=== PATIENT | female | born 2000 | race Caucasian/White ===

== ENCOUNTER 2022-05-12 18:01 | Emergency (ER) | payer OTHER, SELFPAY ==
[2022-05-12 18:07] VITALS: BP 159/123; PULSE 125; RESP 20; TEMP 36.6; O2SAT 100
[2022-05-12 18:19] VITALS: BP 169/118; PULSE 116; RESP 13
[2022-05-12 18:31] VITALS: BP 164/115; PULSE 113; RESP 18; O2SAT 100
--- NOTE | 2022-05-12 18:50 | ED.ANXIETY ---
HPI - Anxiety General Chief Complaint: Anxiety Stated Complaint: ANXIETY, FEELS DISASSOCIATED Time Seen by Provider: 05/12/22 18:25 History of Present Illness HPI narrative: 22-year-old female with history of anxiety presents the emergency room for evaluation of panic attack. Patient states that she returned from her sister's wedding last night, admitted to having an excessive amount of alcohol to drink. Patient states that she has noticed she has been under tearful, had difficulty sleeping last night despite taking Benadryl, nausea, and states she is having a euphoric feeling. Patient denies any recreational drug use. Related Data Home Medications Medication Instructions Recorded Confirmed drospirenone 3 mg-ethinyl 1 tablet PO DAILY 01/14/22 01/14/22 estradiol 0.02 mg tablet (Silviayna (28)) metoprolol succinate 25 mg 25 mg PO DAILY 01/14/22 01/14/22 tablet,extended release 24 hr pantoprazole 40 mg tablet,delayed 40 mg PO QAM 01/14/22 01/14/22 release paroxetine HCl 20 mg tablet 20 mg PO DAILY 01/14/22 01/14/22 Allergies Allergy/AdvReac Type Severity Reaction Status Date / Time Penicillins Allergy Unknown RASH Verified 01/14/22 14:45 Review of Systems Review of Systems: CONSTITUTIONAL: Denies fever, chills, or sweats. EYES: Denies visual changes, redness, or discharge. ENT: Denies rhinorrhea, congestion, sore throat, or otalgia. CARDIOVASCULAR: Denies chest pain, palpitations, or edema. RESPIRATORY: Denies cough or dyspnea. GASTROINTESTINAL: Reports nausea and vomiting GENITOURINARY: Denies dysuria or hematuria. SKIN: Denies rash or itching. MUSCULOSKELETAL: Denies back pain, joint pain, or myalgia. NEUROLOGIC: Denies headache, numbness, dizziness, or weakness. PSYCHIATRIC: Reports anxiety and insomnia PMF Past Medical History Medical History Hodgkins lymphoma Surgical History Surgical History Hx of tonsillectomy Family History Family History Mother Hypertension Father Hyperlipidemia Social History Social History Smoking status: Never smoker Second hand tobacco smoke exposure: No Alcohol intake: current Drinks per week: 10 Substance use: never Substance use type: does not use Gender identity (if verbalized by the patient): Female Sexual Orientation (if Verbalized by the Patient): Straight or Heterosexual Spiritual care concerns: No Agree to blood products: Yes Exam Narrative: GENERAL: Well-appearing, well-nourished, no physical limitations, and in mild emotional acute distress. HEAD: Normocephalic, atraumatic. EYES: Conjunctivae normal, PERRLA and EOMI. ENT: External nose normal, Nares clear, no rhinorrhea or epistaxis. Mucous membranes moist. Oropharynx without tonsillar hypertrophy exudate or other lesions. External ears normal, bilateral TMs normal bilaterally NECK: Supple. No adenopathy or masses. CHEST: Clear to auscultation. No respiratory distress. No wheezes rales or rhonchi. No tenderness. HEART: Regular rate and rhythm. No murmur heard. Normal peripheral pulses. ABDOMEN: Soft, nontender, nondistended, normal active bowel sounds. BACK: No CVA tenderness; No cervical/thoracic/lumbar tenderness, step-offs, bony abnormality; FROM EXTREMITIES: Normal range of motion. No edema. No clubbing or cyanosis SKIN: Warm, dry, no rash. No noted wounds NEURO: No focal deficits. Alert and oriented x3. MAEW. CN's II-XI intact bilaterally, normal gait PSYCH: Cooperative. Anxious and tearful. Course Vital Signs Vital signs: Vital Signs Temperature 36.6 C 05/12/22 18:07 Pulse Rate 125 H 05/12/22 18:07 Respiratory Rate 20 05/12/22 18:07 Blood Pressure 159/123 H 05/12/22 18:07 Pulse Oximetry 100 05/12/22 18:07 Oxygen Delivery Room A
[2022-05-12] MEDS: LORazepam INJ (*CRX) 2 MG/ML VIAL 1 MG IV PUSH (19:05)
[2022-05-12] MEDS: SODIUM CHLORIDE 0.9% IV 1,000 ML 999 ML IV CONT (19:06)
[2022-05-12 19:17] LABS: Ethanol < 10 mg/dL (<10)
--- NOTE | 2022-05-12 19:19 | PC.NURSE ---
Patient care report given to NEVA Reilly. All questions answered at this time.
[2022-05-12 19:50] LABS: Appearance Urine Slightly Cloudy (Clear); Bilirubin Urine Negative (Negative); Color Urine Yellow (Yellow); Glucose Urine UA Negative (Negative); Ketones Urine Negative (Negative); Leukocyte Esterase Ur Trace LEU/UL (Negative); Nitrate Urine Negative (Negative); Protein Urine 1+ mg/dL (Negative); Specific Grav Ur >= 1.030 (1.001-1.035); Urobilinogen Urine 0.2 mg/dL (<2.0)
[2022-05-12 20:01] LABS: Add Urine Microscopic? YES; Blood Urine Trace-Intact (Negative)
[2022-05-12 20:03] LABS: Bacteria Urine Trace /hpf; Mucus Urine Heavy /lpf; RBC Urine 0-2 /hpf (0-2); Squamous Epithelial Cell Urine Many /hpf (Few)
[2022-05-12 20:06] LABS: Amphetamine Screen Urine Negative (Negative); Barbiturate Screen Urine Negative (Negative); Benzodiazepines Screen Urine Negative (Negative); Cannabinoid Screen Urine Negative (Negative); Cocaine Screen Urine Negative (Negative); Methadone Screen Urine Negative (Negative); Opiate Screen Urine Negative (Negative); Phencyclidine Screen Urine Negative (Negative)
[2022-05-12 20:40] VITALS: PULSE 100
[2022-05-12] MEDS: METOPROLOL TARTRATE INJ 5 MG/5 ML VIAL IV PUSH (20:40)
[2022-05-12 21:21] VITALS: BP 155/105; PULSE 99; RESP 17; O2SAT 97
== END 2022-05-12 21:21 | disposition home or self-care (01) ==
PROVIDERS: Emergency Provider Nurse Practitioner Family; PCP Family Medicine Adolescent Medicine
DX: F41.0 Panic disorder [episodic paroxysmal anxiety] (principal); Z85.71 Personal history of Hodgkin lymphoma
CPT/HCPCS: 36415; 80307; 81001; 81025; 87086; 87088; 96361; 96374; 96375; 99284; J2060; J7030

== ENCOUNTER 2023-04-30 08:50 | Emergency (ER) | payer OTHER, SELFPAY ==
[2023-04-30] VITALS (25 sets, daily range): BP systolic 142–200; BP diastolic 100–132; PULSE 79–127; RESP 12–20; TEMP 36.4–36.8; O2SAT 100
--- NOTE | ~2023-04-30 | XR_ITS ---
EXAMINATION: XR chest 2V DATE: 04/30/2023 09:58 INDICATION: Hypertension TECHNIQUE: PA and lateral views of the chest are obtained. COMPARISON: None available FINDINGS: The lungs are free of acute opacities. No pleural effusion or pneumothorax. The cardiomedia stinal silhouette is normal. The visualized bones and soft tissues are unremarkable. IMPRESSION: 1. No acute cardiopulmonary abnormality. Reviewed, dictated and finalized at location B.
--- NOTE | 2023-04-30 09:05 | ECG_ITS ---
Measurements Intervals [place] Rate: 125 P: 54 CO: 140 QRS: 25 QRSD: 85 T: 29 QT: 308 QTc: 445 Interpretive Statements SINUS TACHYCARDIA NONSPECIFIC ST & T-WAVE ABNORMALITY- INF/HIGH LAT LEADS BASELINE ARTIFACT- I, II, III, AVR, AVL, AVF ABNORMAL ECG NO PREVIOUS ECG AVAILABLE FOR COMPARISON Electronically Signed On 04-30-2023 9:34:14 CDT by Ubaldo Temple D.O.
[2023-04-30 09:26] LABS: Basophils Absolute Auto 0.1 K/mm3 (0.0-0.1); Basophils Percent Auto 0.8 % (0.2-1.2); Eosinophils Absolute Auto 0.1 K/mm3 (0-0.3); Eosinophils Percent Auto 0.7 % (0-4.4); Hematocrit 38.4 % (37.0-47.0); Hemoglobin 12.7 g/dL (12.0-15.0); Immature Granulocyte Absolute 0.01 K/mm3 (0.00-0.031); Immature Granulocyte Percent A 0.1 % (0-0.5); Lymphocytes Absolute Auto 2.61 K/mm3 (0.9-3.2); Mean Corpuscular HGB Conc 33.1 g/dl (32-36); Mean Corpuscular Hemoglobin 31.9 pg (26-34); Mean Corpuscular Volume 96.5 fl (80-100); Mean Platelet Volume 9.8 fl (7.4-10.4); Monocytes Absolute Auto 0.6 K/mm3 (0.1-0.6); Monocytes Percent Auto 7.9 % (2.6-8.5); Neutrophils Absolute Auto 4.1 K/mm3 (1.3-6.7); Neutrophils Percent Auto 55.5 % (45.5-73.1); Platelet Count Result 295 k/mm3 (150-375); Red Blood Count 3.98 M/mm3 (4.2-5.4); Red Cell Distribution Width 13.4 % (11.5-14.5); White Blood Count 7.5 K/mm3 (4.5-10.0)
[2023-04-30 09:37] LABS: Alanine Aminotransferase 31 U/L (6-35); Albumin Level 4.6 g/dL (3.5-5.1); Alkaline Phosphatase 92 U/L (38-126); Anion Gap 9 mmol/L (8-16); Aspartate Amino Transferase 56 U/L (14-36); Bilirubin,Total 1.1 mg/dL (0.2-1.3); Blood Urea Nitrogen 13 mg/dL (7-17); Calcium 9.6 mg/dL (8.4-10.2); Carbon Dioxide 24 mmol/L (22-30); Chloride 103 mmol/L (98-107); Estimated CRCL calculation 97 ml/min; Estimated Glomerular Filt Rate > 60; Glucose 95 mg/dL (65-110); Potassium 3.1 mmol/L (3.4-5.0); Sodium 136 mmol/L (137-145)
--- NOTE | 2023-04-30 09:41 | ED.ARRPALP ---
HPI - Arrhythmia/Palpitations General Chief Complaint: Arrhythmia/Palpitations Stated Complaint: rapid heart rate x several months Time Seen by Provider: 04/30/23 09:04 Source: patient Mode of arrival: ambulatory Limitations: no limitations History of Present Illness HPI narrative: This is a 23-year-old female that presents to the emergency department for hypertension. Reports she has been on metoprolol for several years. Largely due to anxiety and palpitations. This is also managed her blood pressure. Reports over the last couple of months she feels as though it is no longer been controlling her blood pressure. She presents to the emergency department today for elevated blood pressure, elevated heart rate and anxiety. Reports she has not seen her primary provider for this yet. 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 Denies visual changes, headache, chest pain, shortness of breath, or lower extremity edema. Related Data Home Medications Medication Instructions Recorded Confirmed drospirenone 3 mg-ethinyl 1 tablet PO DAILY 01/14/22 01/14/22 estradiol 0.02 mg tablet (Loryna (28)) pantoprazole 40 mg tablet,delayed 40 mg PO QAM 01/14/22 01/14/22 release paroxetine HCl 20 mg tablet 20 mg PO DAILY 01/14/22 01/14/22 Allergies Allergy/AdvReac Type Severity Reaction Status Date / Time Penicillins Allergy Unknown RASH Verified 04/30/23 08:51 Review of Systems Review of Systems: CONSTITUTIONAL: Denies fever EYES: Denies visual changes CARDIOVASCULAR: Reports palpitations. Denies chest pain, or edema. RESPIRATORY: Denies dyspnea. NEUROLOGIC: Denies headache, numbness, or weakness. PSYCHIATRIC: Reports anxiety All systems reviewed & are unremarkable except as noted in HPI and below [facility] Past Medical History Medical History Hodgkins lymphoma Surgical History Surgical History Hx of tonsillectomy Family History Family History Mother Hypertension Father Hyperlipidemia Social History Social History Smoking status: Never smoker Second hand tobacco smoke exposure: No Alcohol intake: current Drinks per week: 10 Substance use: never Substance use type: does not use Living arrangements: with family Occupation/Education: occupation Gender identity (if verbalized by the patient): Female Sexual Orientation (if Verbalized by the Patient): Straight or Heterosexual Spiritual care concerns: No Agree to blood products: Yes Exam Narrative: GENERAL: Well-appearing, well-nourished, and in no acute distress. HEAD: Normocephalic, atraumatic. EYES: PERRLA and EOMI. ENT: Nares clear, no rhinorrhea or epistaxis. Mucous membranes moist. Oropharynx without tonsillar hypertrophy exudate or other lesions. Bilateral TMs pearly quach non-bulging NECK: Supple. No adenopathy or masses. CHEST: Clear to auscultation. No respiratory distress. No wheezes rales or rhonchi HEART: Regular rate and rhythm. No murmur heard. Normal peripheral pulses. EXTREMITIES: Normal range of motion. No edema. SKIN: Warm, dry, no rash. NEURO: No focal deficits. Alert and oriented x3. PSYCH: Anxious Course Course Emergency Course: Patient was updated on work-up and agrees with plan of care Consultations Consultation #1: Spoke with Dr. Ledezma about patient and workup. Will increase Metoprolol and follow up in clinic for further management of abnormal thyroid function Date: 04/30/23 Vital Signs Vital signs: Vital Signs Temperature 97.6 F 04/30/23 08:52 Pulse Rate 127 H 04/30/23 08:52 Respiratory Rate 18 04/30/23 08:52 Blood Pressure 200/132 H 04/30/23 08:52 Pulse Oximetry 100 07
[2023-04-30] MEDS: METOPROLOL SUCCINATE EXT REL 25 MG TABCR PO (10:03)
[2023-04-30 10:20] LABS: Magnesium 1.5 mg/dL (1.6-2.3)
[2023-04-30 10:45] LABS: Appearance Urine Clear (Clear); Bacteria Urine Rare /hpf; Bilirubin Urine Negative (Negative); Blood Urine 3+ (Negative); Color Urine Yellow (Yellow); Glucose Urine UA Negative (Negative); Ketones Urine Negative (Negative); Leukocyte Esterase Ur 2+ LEU/UL (Negative); Nitrate Urine Negative (Negative); Non Pathogenic Casts 0-2; Protein Urine Trace mg/dL (Negative); Specific Grav Ur 1.013 (1.001-1.035); Squamous Epithelial Cell Urine Occasional /hpf (Few); Urobilinogen Urine 0.2 mg/dL (<2.0); WBC Urine 21-50 /hpf; pH Urine 6.5 (5.0-9.0)
[2023-04-30 10:46] LABS: Add Urine Microscopic? YES
[2023-04-30] MEDS: MAGNESIUM CHLORIDE 64 MG TABLET PO (11:15)
[2023-04-30] MEDS: POTASSIUM CHLORIDE 20 MEQ ER TABLET 40 MEQ PO (11:15)
[2023-04-30 11:46] LABS: Free T4 Free Thyroxine Reflex 0.71 ng/dL (0.78-2.19)
== END 2023-04-30 13:15 | disposition home or self-care (01) ==
PROVIDERS: Emergency Provider Physician Assistant; PCP Family Medicine Adolescent Medicine
DX: I10 Essential (primary) hypertension (principal); E87.6 Hypokalemia; R94.6 Abnormal results of thyroid function studies; F41.9 Anxiety disorder, unspecified; Z85.71 Personal history of Hodgkin lymphoma
CPT/HCPCS: 36415; 71046; 80053; 81001; 81025; 83735; 84439; 84443; 85025; 87086; 87088; 93005; 99283; A9270

== ENCOUNTER 2023-08-27 15:41 | Emergency (ER) | payer OTHER, SELFPAY ==
[2023-08-27 15:43] VITALS: BP 160/112; PULSE 98; RESP 18; TEMP 36.4; O2SAT 100
--- NOTE | 2023-08-27 16:07 | ED.ANXIETY ---
HPI - Anxiety General Chief Complaint: Anxiety Stated Complaint: nausea/vomiting Time Seen by Provider: 08/27/23 15:50 History of Present Illness HPI narrative: 23-year-old female presents to the emergency room for evaluation of acute anxiety reaction. Patient states that she recently lost her grandmother, stating that she was her best friend. Reports difficulty sleeping and inability to stop crying Related Data Home Medications Medication Instructions Recorded Confirmed drospirenone 3 mg-ethinyl 1 tablet PO DAILY 01/14/22 05/19/23 estradiol 0.02 mg tablet (Loryna (28)) pantoprazole 40 mg tablet,delayed 40 mg PO QAM 01/14/22 05/19/23 release paroxetine HCl 20 mg tablet 20 mg PO DAILY 01/14/22 05/19/23 Allergies Allergy/AdvReac Type Severity Reaction Status Date / Time Penicillins Allergy Unknown RASH Verified 08/27/23 15:49 Review of Systems Review of Systems: CONSTITUTIONAL: Denies fever, chills, or sweats. EYES: Denies visual changes, redness, or discharge. ENT: Denies rhinorrhea, congestion, sore throat, or otalgia. CARDIOVASCULAR: Denies chest pain, palpitations, or edema. RESPIRATORY: Denies cough or dyspnea. GASTROINTESTINAL: Denies abdominal pain, nausea, vomiting, or diarrhea. GENITOURINARY: Denies dysuria or hematuria. SKIN: Denies rash or itching. MUSCULOSKELETAL: Denies back pain, joint pain, or myalgia. NEUROLOGIC: Denies headache, numbness, dizziness, or weakness. PSYCHIATRIC: Reports anxiety. [facility] Past Medical History Medical History Hodgkins lymphoma Surgical History Surgical History Hx of tonsillectomy Family History Family History Mother Hypertension Father Hyperlipidemia Social History Social History Smoking status: Never smoker Second hand tobacco smoke exposure: No Alcohol intake: current Drinks per week: 10 Substance use: never Substance use type: does not use Living arrangements: with family Occupation/Education: occupation Gender identity (if verbalized by the patient): Female Sexual Orientation (if Verbalized by the Patient): Straight or Heterosexual Spiritual care concerns: No Agree to blood products: Yes Exam Narrative: GENERAL: Well-appearing, well-nourished, no physical limitations, tearful. HEAD: Normocephalic, atraumatic. EYES: Conjunctivae normal, PERRLA and EOMI. CHEST: Clear to auscultation. No respiratory distress. No wheezes rales or rhonchi. HEART: Regular rate and rhythm. No murmur heard. Normal peripheral pulses. EXTREMITIES: Normal range of motion. No edema. No clubbing or cyanosis SKIN: Warm, dry, no rash. No noted wounds NEURO: No focal deficits. Alert and oriented x3. MAEW. CN's II-XI intact bilaterally, normal gait PSYCH: Cooperative. Anxious and tearful. Course Vital Signs Vital signs: Vital Signs Temperature 36.4 C 08/27/23 15:43 Pulse Rate 98 08/27/23 15:43 Respiratory Rate 18 08/27/23 15:43 Blood Pressure 160/112 H 08/27/23 15:43 Pulse Oximetry 100 08/27/23 15:43 Oxygen Delivery Room Air 08/27/23 15:43 Temperature 36.4 C 08/27/23 15:43 Pulse Rate 98 08/27/23 15:43 Respiratory Rate 18 08/27/23 15:43 Blood Pressure 160/112 H 08/27/23 15:43 Pulse Oximetry 100 08/27/23 15:43 Oxygen Delivery Room Air 08/27/23 15:43 MDM - Anxiety Lab Data Labs: Lab Results 08/27/23 Range/Units 16:15 TSH 3.100 (0.465-4.680) uIU/mL Discharge Plan Discharge Clinical Impression: Grief reaction Patient Disposition: Home, Self-Care Condition: Stable Instructions: Antibiotic Form, Anxiety (ED) Prescriptions: New lorazepam [Ativan] 1 mg tablet 1 mg PO TID PRN (Reason: anxiety) Qty: 21 0RF No Action paro
[2023-08-27] MEDS: LORazepam INJ (*CRX) 2 MG/ML VIAL 1 MG IV PUSH (16:21)
[2023-08-27 17:23] VITALS: PULSE 91; RESP 18; O2SAT 100
== END 2023-08-27 17:23 | disposition home or self-care (01) ==
PROVIDERS: Emergency Provider Nurse Practitioner Family; PCP Family Medicine Adolescent Medicine
DX: F43.20 Adjustment disorder, unspecified (principal)
CPT/HCPCS: 36415; 84443; 96374; 99284; J2060

== ENCOUNTER 2024-02-10 11:49 | Outpatient (CLI) | payer OTHER, SELFPAY ==
--- NOTE | ~2024-02-10 | XR_ITS ---
XR chest 2V 02/10/2024 12:11 Indication: Persistent cough for weeks Procedure: 2 view chest Comparison: No prior studies for comparison. Findings: Left upper lobe pneumonia. Heart size normal. Mild levoscoliosis of the thoracic spine. No pleural effusion, edema or pneumothorax. Impression: 1: Left upper lobe pneumonia. Reviewed, dictated and finalized at location B. Impression: 1: Left upper lobe pneumonia.
[2024-02-10 13:03] LABS: Basophils Percent Auto 0.1 % (0.2-1.2); Eosinophils Percent Auto 0.1 % (0-4.4); Hematocrit 37.4 % (37.0-47.0); Hemoglobin 12.5 g/dL (12.0-15.0); Immature Granulocyte Absolute 0.35 K/mm3 (0.00-0.031); Lymphocytes Absolute Auto 0.57 K/mm3 (0.9-3.2); Lymphocytes Percent Auto 6.5 % (18.3-44.2); Mean Corpuscular HGB Conc 33.4 g/dl (32-36); Mean Corpuscular Hemoglobin 30.6 pg (26-34); Mean Corpuscular Volume 91.4 fl (80-100); Mean Platelet Volume 10.3 fl (7.4-10.4); Monocytes Absolute Auto 0.1 K/mm3 (0.1-0.6); Monocytes Percent Auto 1.5 % (2.6-8.5); Neutrophils Absolute Auto 7.7 K/mm3 (1.3-6.7); Neutrophils Percent Auto 87.8 % (45.5-73.1); Platelet Count Result 320 k/mm3 (150-375); Red Blood Count 4.09 M/mm3 (4.2-5.4); White Blood Count 8.8 K/mm3 (4.5-10.0)
[2024-02-10 13:30] LABS: Alanine Aminotransferase 20 U/L (6-35); Albumin Level 3.8 g/dL (3.5-5.1); Alkaline Phosphatase 139 U/L (38-126); Anion Gap 17 mmol/L (4-12); Aspartate Amino Transferase 31 U/L (14-36); Bilirubin,Total 0.9 mg/dL (0.2-1.3); Blood Urea Nitrogen 24 mg/dL (7-17); Calcium 7.8 mg/dL (8.4-10.2); Carbon Dioxide 18 mmol/L (22-30); Chloride 98 mmol/L (98-107); Estimated Glomerular Filt Rate 17; Glucose 99 mg/dL (65-110); Potassium 2.6 mmol/L (3.4-5.0); Sodium 133 mmol/L (137-145)
== END 2024-02-10 11:50 | disposition home or self-care (01) ==
LOC: ANHIMG 11:51
PROVIDERS: PCP Family Medicine Adolescent Medicine; Visit Provider Nurse Practitioner Family
DX: R05.3 Chronic cough (principal); K52.9 Noninfective gastroenteritis and colitis, unspecified; J18.9 Pneumonia, unspecified organism
CPT/HCPCS: 36415; 71046; 80053; 85025

== ENCOUNTER 2024-02-10 16:17 | Inpatient (IN) | payer OTHER, SELFPAY ==
[2024-02-10] VITALS (20 sets, daily range): BP systolic 74–108; BP diastolic 48–73; PULSE 131–147; RESP 13–34; TEMP 36.3; O2SAT 88–100
--- NOTE | ~2024-02-10 | XR_ITS ---
EXAMINATION: XR chest 1V portable Exam Date/Time: 02/10/2024 17:25 CDT HISTORY: Eval for pneumonia Comparison: 02/10/2024 12:09 PM. RESULT: Lines, tubes, and devices: None. Lungs and pleura: Rapid and considerable increased size of the segmental left upper lobe consolidati on. Central low density may represent developing cavitation. Cardiomediastinal silhouette: Stable. Other: No acute osseous or upper abdominal finding. IMPRESSION: Worsening segmental left upper lobe consolidation. Apparent central low density may represent develop ing cavitation. Rapid change in size may be related to developing cavitation, pulmonary hemorrhage/in farct, localized edema, florid infection, or some combination of those entities. Consider CTPA of the chest for further evaluation. Reviewed, dictated and finalized at location K. IMPRESSION: Worsening segmental left upper lobe consolidation. Apparent central low density may represent developing cavitation. Rapid change in size may be related to de veloping cavitation, pulmonary hemorrhage/infarct, localized edema, florid infe ction, or some combination of those entities. Consider CTPA of the chest for fu rther evaluation.
--- NOTE | ~2024-02-10 | XR_ITS ---
EXAMINATION: XR chest ET placement, XR abdomen gastric tube insert DATE: 02/11/2024 09:31 INDICATION: Endotracheal tube placement, central line placement and nasogastric tube placement TECHNIQUE: 1. Portable supine AP view of the chest was obtained. Line 2. Portable AP supine view of the abdomen was obtained. COMPARISON: Chest radiograph dated 02/11/2024 FINDINGS: Chest : Endotracheal tube tip 3.0 cm above the tracey. Right internal jugular central venous catheter with di stal tip near the superior cavoatrial junction. There is extensive dense consolidation throughout much of the left lung and more patchy airspace opac ities in the right mid and lower lung zones consistent with multifocal pneumonia. No pneumothorax or definitive pleural effusion. Abdomen: Nasogastric tube with tip in proximal side port in the body of the stomach. There is increased densit y of the kidneys suggesting persistent nephrograms related to the contrast enhanced CT from one day p rior and suggesting renal insufficiency. Positive bowel gas in the abdomen or visualized pelvis. Mild lumbar dextrorotoscoliosis with mild spondylosis. IMPRESSION: 1. Lines and tubes in expected positions. 2. Progression of dense consolidation throughout much of the left lung and patchy airspace opacity in the right lung consistent with multifocal pneumonia. 3. Bilateral delayed nephrograms suggesting renal insufficiency. Reviewed, dictated and finalized at location A. IMPRESSION: 1. Lines and tubes in expected positions. 2. Progression of dense consolidation throughout much of the left lung and patc hy airspace opacity in the right lung consistent with multifocal pneumonia. 3. Bilateral delayed nephrograms suggesting renal insufficiency.
--- NOTE | ~2024-02-10 | CT_ITS ---
EXAMINATION: CTA chest PE abdomen pel DATE: 02/10/2024 18:59 INDICATION: Left lobe consolidation, LUQ abdominal pain TECHNIQUE: Computed tomography angiography (CTA) of the chest was performed with 100 mL Omnipaque-350 intravenous contrast timed to evaluate the pulmonary arteries, followed by portal venous phase imagi ng of the abdomen and pelvis. Coronal maximum intensity projection 3D-reconstructions were created by the technologist. The dose-length product (DLP) was 688.69 mGy-cm. Automated exposure control and it erative reconstruction technique were employed. COMPARISON: Chest radiographs at 12 2:00 PM and 5:22 PM. FINDINGS: CHEST: Lung parenchyma and airways: Subsegmental-segmental consolidation in the left upper lobe. Large area of acinar groundglass opacities surrounding the consolidation, involving a greater portion of the lef t upper lobe and a portion of the right middle lobe. Ill-defined centrilobular nodular groundglass op acities in the left lung. Pleura: Unremarkable. Thoracic inlet, axillae and chest wall: No thyroid or soft tissue mass. Thoracic aorta: No significant dilation. No dissection. Mediastinum: Normal. Heart and pericardium: Normal. Coronary artery calcifications: Absent. Thoracic bones: No acute osseous finding. Pulmonary arteries: Study quality: Adequate. No pulmonary emboli detected. ABDOMEN/PELVIS: Liver: Hepatomegaly. Left and right lobe hypodensities, likely representing cysts or hemangiomas. Biliary/Gallbladder: Distended gallbladder. No stones or inflammatory changes. No bile duct dilation. Pancreas: No mass or duct dilation. Spleen: Normal. Adrenals:No mass. Kidneys: No suspicious mass, obstructing stone, or hydronephrosis. GI tract: No small or large bowel dilation. Normal appendix. Mesentery/Peritoneum: No ascites, mass, or free air. Retroperitoneum: No mass. Pelvis: Pelvic organs are within normal limits. Soft Tissues: Soft tissues and body wall unremarkable. Abdominopelvic bones: No acute osseous finding. Scoliosis. IMPRESSION: No CT evidence of acute pulmonary bolus. Segmental/subsegmental consolidation in the left upper lobe likely representing initial chest radiogr aph findings and likely consistent with pneumonia. Larger area of surrounding acinar opacities, likely representing the increasing opacification seen in the most recent radiograph, these opacities may represent edema, pulmonary hemorrhage, or spread of infection, possibly with an endobronchial or less likely an aspiration component. No CT evidence of c avitation. More subtle centrilobular groundglass opacities in the right lung probably relate to additional sites of infection. Pneumonitis could also be considered in the differential. Hepatomegaly. Gallbladder hydrops as can be seen with obstruction or fasting. No obstructing stone or mass detected in this examination. Correlate with biliary labs. Reviewed, dictated and finalized at location [facility]. IMPRESSION: No CT evidence of acute pulmonary bolus. Segmental/subsegmental consolidation in the left upper lobe likely representing initial chest radiograph findings and likely consistent with pneumonia. Larger area of surrounding acinar opacities, likely representing the increasing opacification seen in the most recent radiograph, these opacities may represen t edema, pulmonary hemorrhage, or spread of infection, possibly with an endobro nchial or less likely an aspiration component. No CT evidence of cavitation. More subtle centrilobular groundglass opacities in the right lung probably rela te to additional sites of infection. Pneumonitis could also be considered in th e differential. Hepatomegaly. Gallbladder hydrops as can be seen with obstruct
--- NOTE | ~2024-02-10 | XR_ITS ---
Portable chest x-ray Comparison: 02/10/2024 Clinical History: Hypoxia Findings: Increased left lung consolidation is present. Right lung essentially clear. Cardiomediast inal silhouette is stable. Bones and soft tissues are unremarkable. Impression: More extensive left lung consolidation. Correlate for extensive pneumonia and/or layering effusion. Right lung essentially clear. Reviewed, dictated and finalized at [facility]. Impression: More extensive left lung consolidation. Correlate for extensive pneumonia and/o r layering effusion. Right lung essentially clear.
--- NOTE | 2024-02-10 16:48 | PC.NURSE ---
Pt BP 78/50 Rechecked with new cuff and BP reading is 76/63 EDP aware and at bedside gave VORB for 30mL/kg NS fluid bolus
[2024-02-10 17:41] LABS: INR 1.1
[2024-02-10 17:47] LABS: Basophils Absolute Auto 0.1 K/mm3 (0.0-0.1); Basophils Percent Auto 1.1 % (0.2-1.2); Eosinophils Percent Auto 0.2 % (0-4.4); Hematocrit 35.3 % (37.0-47.0); Hemoglobin 11.6 g/dL (12.0-15.0); Immature Granulocyte Absolute 0.08 K/mm3 (0.00-0.031); Immature Granulocyte Percent A 1.8 % (0-0.5); Lymphocytes Absolute Auto 0.45 K/mm3 (0.9-3.2); Mean Corpuscular HGB Conc 32.9 g/dl (32-36); Mean Corpuscular Hemoglobin 30.5 pg (26-34); Mean Corpuscular Volume 92.9 fl (80-100); Mean Platelet Volume 10.7 fl (7.4-10.4); Monocytes Absolute Auto 0.1 K/mm3 (0.1-0.6); Monocytes Percent Auto 1.8 % (2.6-8.5); Neutrophils Absolute Auto 3.8 K/mm3 (1.3-6.7); Neutrophils Percent Auto 85.1 % (45.5-73.1); Platelet Count Result 304 k/mm3 (150-375); Red Cell Distribution Width 13.9 % (11.5-14.5); White Blood Count 4.5 K/mm3 (4.5-10.0)
[2024-02-10 18:01] LABS: Anisocytosis 1+; Hypochromasia 1+; Platelet Estimate Adequate (Adequate); Schistocytes None Seen
[2024-02-10 18:01] LABS: Lactic Acid Reflex 5.7 mmol/L (0.7-2.0)
[2024-02-10 18:02] LABS: Albumin Level 3.6 g/dL (3.5-5.1); Alkaline Phosphatase 125 U/L (38-126); Anion Gap 19 mmol/L (4-12); Aspartate Amino Transferase 35 U/L (14-36); Bilirubin,Total 0.8 mg/dL (0.2-1.3); Blood Urea Nitrogen 26 mg/dL (7-17); Calcium 7.4 mg/dL (8.4-10.2); Carbon Dioxide 17 mmol/L (22-30); Chloride 93 mmol/L (98-107); Estimated CRCL calculation 22 ml/min; Estimated Glomerular Filt Rate 15; Glucose 117 mg/dL (65-110); Potassium 2.4 mmol/L (3.4-5.0); Sodium 129 mmol/L (137-145)
--- NOTE | 2024-02-10 18:03 | PC.NURSE ---
Pt blood pressure 86/67, EDP made aware and gave VORB for 1L NS
[2024-02-10 18:07] LABS: Add Urine Microscopic? YES; Appearance Urine Clear (Clear); Color Urine Yellow (Yellow)
[2024-02-10 18:08] LABS: Bilirubin Urine Negative (Negative); Blood Urine 2+ (Negative); Glucose Urine UA Trace mg/dL (Negative); Ketones Urine Negative (Negative); Leukocyte Esterase Ur 2+ LEU/UL (Negative); Nitrate Urine Negative (Negative); Protein Urine 3+ mg/dL (Negative); Specific Grav Ur 1.025 (1.001-1.035); Urobilinogen Urine 0.2 mg/dL (<2.0)
[2024-02-10] MEDS: LACTATED RINGERS 1,000 ML 999 ML IV CONT (18:08)
[2024-02-10 18:09] LABS: Squamous Epithelial Cell Urine Moderate /hpf (Few); WBC Clumps Urine Present /HPF
[2024-02-10 18:10] LABS: Bacteria Urine 1+ /hpf
[2024-02-10 18:15] LABS: Alanine Aminotransferase 28 U/L (6-35)
--- NOTE | 2024-02-10 18:54 | ED.GENADULT ---
HPI - General Adult General Chief complaint: Recheck/Abnormal Lab/Rx <Ramón Vazquez MD - Last Filed: 02/10/24 19:44> Stated complaint: dehydration <Ramón Vazquez MD - Last Filed: 02/10/24 19:44> Time Seen by Provider: 02/10/24 16:47 <Ramón Vazquez MD - Last Filed: 02/10/24 19:44> History of Present Illness HPI narrative: This is a 24-year-old female, with history of Hodgkin's lymphoma, cancer free as of 13 years ago, who presents to the emergency department from urgent care for with concerns for pneumonia and tachycardia. The patient states for the past several days, she has had cough productive of sputum without blood. She also complains of sharp left-sided chest and upper abdominal pain, rated 4 to 5/10 worse with cough or deep breathing. She has no other complaints and was told that she may be dehydrated. <Ramón Vazquez MD - Last Filed: 02/10/24 19:44> Related Data Home medications: Home Medications Medication Instructions Recorded Confirmed drospirenone 3 mg-ethinyl 1 tablet PO DAILY 01/14/22 02/11/24 estradiol 0.02 mg tablet (Loryna (28)) sertraline 50 mg tablet 50 mg PO DAILY 02/09/24 02/11/24 hydroxyzine HCl 25 mg tablet 25 mg PO TID PRN Anxiety 02/11/24 02/11/24 metoprolol succinate 50 mg 50 mg PO DAILY 02/11/24 02/11/24 tablet,extended release 24 hr <Ramón Vazquez MD - Last Filed: 02/10/24 19:44> Allergies/adverse reactions: Allergies Allergy/AdvReac Type Severity Reaction Status Date / Time Penicillins Allergy Unknown RASH Verified 02/11/24 09:16 amoxicillin Allergy Rash Verified 02/11/24 09:20 <Ramón Vazquez MD - Last Filed: 02/10/24 19:44> Review of Systems Review of Systems: CONSTITUTIONAL: Denies fever, chills, or sweats. EYES: Denies visual changes, redness, or discharge. ENT: Denies rhinorrhea, congestion, sore throat, or otalgia. CARDIOVASCULAR: Denies chest pain, palpitations, or edema. RESPIRATORY: Cough productive of nonbloody sputum Denies dyspnea. GASTROINTESTINAL: Denies abdominal pain, nausea, vomiting, or diarrhea. GENITOURINARY: LMP 2 weeks ago. Denies dysuria or hematuria. SKIN: Denies rash or itching. MUSCULOSKELETAL: Denies back pain, joint pain, or myalgia. NEUROLOGIC: Denies headache, numbness, dizziness, or weakness. PSYCHIATRIC: Denies anxiety or depression. <Ramón Vazquez MD - Last Filed: 02/10/24 19:44> [facility] Past Medical History Medical History: Medical History Hodgkins lymphoma <Ramón Vazquez MD - Last Filed: 02/10/24 19:44> Surgical History Surgical History: Surgical History Hx of tonsillectomy <Ramón Vazquez MD - Last Filed: 02/10/24 19:44> Family History Family History: Family History Mother Hypertension Father Hyperlipidemia <Ramón Vaqzuez MD - Last Filed: 02/10/24 19:44> Social History Social History: Social History Smoking status: Never smoker Second hand tobacco smoke exposure: No Alcohol intake: current Drinks per week: 10 Substance use: never Substance use type: does not use Do You Feel Safe in your Home?: Yes Lack of Transportation: No Lack of Food: Never True Current Housing: I Have Housing Concerned About Future Housing: No Difficulty Paying Gas/Electric Bills: No Difficulty Paying for Meds: No Currently Unemployed: No Education: High School Diploma/GED Difficulty w/ Childcare or Family Care: No Living arrangements: with family Occupation/Education: occupation Gender identity (if verbalized by the patient): Female Sexual Orientation (if Verbalized by the Patient): Straight or Heterosexual Spiritual care concerns: No Agree to blood products: Yes <Ramón
[2024-02-10 19:01] LABS: CRP > 45.0 mg/dL (<1.0)
--- NOTE | 2024-02-10 19:14 | PC.NURSE ---
Report given to Katia HOOKS, all questions answered
[2024-02-10] MEDS: POTASSIUM CHLORIDE 20 MEQ PACKET (FOR LIQUID) 40 MEQ PO (19:17)
[2024-02-10] MEDS: metroNIDAZOLE 500 MG/ISO 100ML 500 MG/100 ML BAG 100 MG IVPB (19:20)
[2024-02-10] MEDS: POTASSIUM CHLORIDE INJ 40 MEQ in SODIUM CHLORIDE 0.9% IV 500 ML 130 MEQ IVPB (19:30)
[2024-02-10] MEDS: CALCIUM GLUC 2,000 MG/NS 100ML 2,000 MG/100 ML BAG 100 MG IVPB (19:38)
[2024-02-10] MEDS: ONDANSETRON INJ 4 MG/2 ML VIAL (19:42)
[2024-02-10] MEDS: MAGNESIUM SULF 2 GM/WATER 50ML 2 GM/50 ML BAG IVPB (20:06)
--- NOTE | 2024-02-10 20:12 | PC.NURSE ---
Consulted Dr. Babin about blood pressure and patient anxiety. VORB for 0.5 mg of Ativan IVP.
[2024-02-10] MEDS: LORazepam INJ (*CRX) 2 MG/ML VIAL 0.5 MG IV PUSH (20:17)
[2024-02-10 20:30] LABS: Reflex Lactic Acid Yes or No Add Lactic
[2024-02-10 21:05] LABS: Lactic Acid 5.3 mmol/L (0.7-2.0)
[2024-02-10] MEDS: SODIUM CHLORIDE 0.9% IV 1,000 ML 999 ML IV CONT (21:09)
--- NOTE | 2024-02-10 21:24 | PM.IMHP ---
H&P: HPI History of Present Illness Date/Time: 02/10/24 21:24 Chief Complaint: shortness of breath Narrative: This is a 24-year-old female past medical history significant for lymphoma as a child. Comes to the emergency room due to 2 weeks shortness of breath, cough, generalized malaise, Nausea, vomiting, has gotten worse over the course of the last 3 days or so. Preliminary workup in emergency room was significant for CT angiogram of the chest patient was rule out for acute pulmonary embolism with a left upper lobe consolidation. XR chest 2V 02/10/2024 12:11 Indication: Persistent cough for weeks Procedure: 2 view chest Comparison: No prior studies for comparison. Findings: Left upper lobe pneumonia. Heart size normal. Mild levoscoliosis of the thoracic spine. No pleural effusion, edema or pneumothorax. Impression: 1: Left upper lobe pneumonia. EXAMINATION: CTA chest PE abdomen pel DATE: 02/10/2024 18:59 INDICATION: Left lobe consolidation, LUQ abdominal pain TECHNIQUE: Computed tomography angiography (CTA) of the chest was performed with 100 mL Omnipaque-350 intravenous contrast timed to evaluate the pulmonary arteries, followed by portal venous phase imaging of the abdomen and pelvis. Coronal maximum intensity projection 3D-reconstructions were created by the technologist. The dose-length product (DLP) was 688.69 mGy-cm. Automated exposure control and iterative reconstruction technique were employed. COMPARISON: Chest radiographs at 12 2:00 PM and 5:22 PM. ? FINDINGS:? CHEST: Lung parenchyma and airways: Subsegmental-segmental consolidation in the left upper lobe. Large area of acinar groundglass opacities surrounding the consolidation, involving a greater portion of the left upper lobe and a portion of the right middle lobe. Ill-defined centrilobular nodular groundglass opacities in the left lung. Pleura: Unremarkable. Thoracic inlet, axillae and chest wall: No thyroid or soft tissue mass. Thoracic aorta: No significant dilation. No dissection. Mediastinum: Normal. Heart and pericardium: Normal. Coronary artery calcifications: Absent. Thoracic bones: No acute osseous finding. Pulmonary arteries: Study quality: Adequate. No pulmonary emboli detected. ABDOMEN/PELVIS: Liver: Hepatomegaly. Left and right lobe hypodensities, likely representing cysts or hemangiomas. Biliary/Gallbladder: Distended gallbladder. No stones or inflammatory changes. No bile duct dilation. Pancreas: No mass or duct dilation. Spleen: Normal. Adrenals:No mass. Kidneys: No suspicious mass, obstructing stone, or hydronephrosis. GI tract: No small or large bowel dilation. Normal appendix. Mesentery/Peritoneum: No ascites, mass, or free air. Retroperitoneum: No mass. Pelvis: Pelvic organs are within normal limits. Soft Tissues: Soft tissues and body wall unremarkable. Abdominopelvic bones:? No acute osseous finding. Scoliosis. IMPRESSION: No CT evidence of acute pulmonary bolus. Segmental/subsegmental consolidation in the left upper lobe likely representing initial chest radiograph findings and likely consistent with pneumonia. Larger area of surrounding acinar opacities, likely representing the increasing opacification seen in the most recent radiograph, these opacities may represent edema, pulmonary hemorrhage, or spread of infection, possibly with an endobronchial or less likely an aspiration component. No CT evidence of cavitation. More subtle centrilobular groundglass opacities in the right lung probably relate to additional sites of infection. Pneumonitis could also be considered in the differential. Hepatomegaly. Gallbladder hydrops as can be seen with obstruction or fasting. No obstructing stone or mass detected in this examination. Correlate with biliary labs. Review of Systems Review of Systems: shortness of breath, cough, sputum production, generalized malaise, body aches and pains, fevers, chills. Constitutional:
--- NOTE | 2024-02-10 21:42 | PC.NURSE ---
EDP made aware of patient's shortness of breath and oxygen administration.
[2024-02-10] MEDS: BENZONATATE 100 MG CAPSULE 200 MG PO (21:48)
[2024-02-10] MEDS: diphenhydrAMINE HCl INJ 50 MG/ML VIAL 25 MG IV PUSH (22:29)
[2024-02-10] MEDS: SODIUM CHLORIDE 0.9% IV 1,000 ML 150 ML IV CONT (22:30)
--- NOTE | 2024-02-10 23:02 | PC.NURSE ---
ED respiratory contacted for high flow nasal cannula per EDP.
[2024-02-11] VITALS (49 sets, daily range): BP systolic 60–132; BP diastolic 26–80; PULSE 123–143; RESP 24–37; TEMP 36.8–38.8; O2SAT 86–97; BMI 30.9
--- NOTE | 2024-02-11 01:56 | PC.NURSE ---
Talked to Dr. Britt regarding anxiety for the patient, okay for 1mg Ativan IV.
[2024-02-11] MEDS: LORazepam INJ (*CRX) 2 MG/ML VIAL 1 MG IV PUSH (02:48)
--- NOTE | 2024-02-11 02:49 | ADMGEN ---
This patient, Juanis Jordan, was admitted to Intensive Care Unit-7 at 0135. Patient/family oriented to hospital policies and general routines including ID bracelet, bed and alarms, visiting hours, pain management, procedures, bathroom and other care routines, personal items, smoking policy, room service/diet, and visiting hours. Information on how to activate the Rapid Response Team has been discussed. Patient/Family are encouraged to report perceived risks to care and to ask questions if they do not understand what they are told or what they should do.
[2024-02-11] MEDS: guaiFENesin/DEXTROMETHORPHAN 10 ML UDC PO (03:30)
[2024-02-11 04:20] LABS: Alveolar/Arterial O2 Gradient 462.7 mmHg; Base Excess ABG -18.4 mEq/l (+/-2.0); Carboxyhemoglobin 0.2 % THb (0-2.0); Fractional Inspired Oxygen 80 %; HCO3 ABG 9.5 mEq/l (22.0-26.0); Methemoglobin ABG 0.4 %THb (0-1.5); Oxygen Content ABG 15.4 %vol (16.0-22.0); Oxygen Saturation ABG 91.1 % (95.0-100.0); Oxyhemoglobin 89.1 % THb (90.0-100.0); PCO2 ABG 29.2 mmHg (35.0-45.0); PO2 FiO2 Ratio Arterial Blood 0.96 %; Reduced Hemoglobin 10.3 %THb (0-5.0); Total Hemoglobin 12.2 g/dL (12.0-18.0)
[2024-02-11 04:26] LABS: Modified Allen's Test Pass; Site Drawn RIGHT RADIAL; pH ABG 7.128 (7.350-7.450)
[2024-02-11 04:27] LABS: Device HIGH FLOW THERAPY
[2024-02-11] MEDS: SODIUM BICARBONATE 8.4% 50 MEQ/50 ML SYRINGE 150 MEQ IV PUSH (04:48)
[2024-02-11] MEDS: CEFEPIME 2 GM/NS 50 ML 2 GM/50 ML BAG IVPB (04:54)
[2024-02-11] MEDS: VANCOMYCIN 2,000 MG/NS 500 ML 2,000 MG/500 ML BAG 250 MG IVPB (05:00)
[2024-02-11 05:27] LABS: Influenza A QL RT-PCR Negative (Negative); Influenza B QL RT-PCR Negative (Negative); RSV RNA, RT-PCR Negative (Negative); SARS-CoV-2 RNA PCR Negative (Negative)
[2024-02-11 05:48] LABS: Lactic Acid Reflex 8.2 mmol/L (0.7-2.0)
[2024-02-11 05:49] LABS: Albumin Level 2.7 g/dL (3.5-5.1); Alkaline Phosphatase 77 U/L (38-126); Anion Gap 16 mmol/L (4-12); Aspartate Amino Transferase 58 U/L (14-36); Bilirubin,Total 0.7 mg/dL (0.2-1.3); Blood Urea Nitrogen 24 mg/dL (7-17); Calcium 6.3 mg/dL (8.4-10.2); Carbon Dioxide 13 mmol/L (22-30); Chloride 106 mmol/L (98-107); Estimated CRCL calculation 23 ml/min; Estimated Glomerular Filt Rate 16; Glucose 93 mg/dL (65-110); Potassium 4.1 mmol/L (3.4-5.0); Sodium 135 mmol/L (137-145)
[2024-02-11 06:02] LABS: Alanine Aminotransferase 29 U/L (6-35)
[2024-02-11 06:02] LABS: MRSA (PCR) NOT DETECTED (NOT DETECTE)
[2024-02-11] MEDS: SODIUM CHLORIDE 0.9% IV 1,000 ML 999 ML IV CONT (06:30)
--- NOTE | 2024-02-11 07:14 | PM.IMPN ---
Progress Note: A&P Assessment and Plan (1) Sepsis: Qualifiers: Acute renal failure type: unspecified Sepsis acute organ dysfunction status: with acute organ dysfunction Sepsis type: sepsis due to unspecified organism Severe sepsis acute organ dysfunction type: acute renal failure Severe sepsis shock status: with septic shock Qualified Code(s): A41.9 - Sepsis, unspecified organism; R65.21 - Severe sepsis with septic shock; N17.9 - Acute kidney failure, unspecified Code(s): A41.9 - Sepsis, unspecified organism Status: Acute Assessment and Plan: Patient presents with shortness of breath and found to have severe sepsis with lactic acidosis, tachycardia, metabolic gap aciedosis, LINDSEY, and elevated CRP. Also with transiently low BP to 74/56. She received 3L NS in ED CT Ch/A/P: -- No CT evidence of acute pulmonary bolus. -- Segmental/subsegmental consolidation in the left upper lobe likely representing initial chest radiograph findings and likely consistent with pneumonia. -- Larger area of surrounding acinar opacities, likely representing the increasing opacification seen in the most recent radiograph, these opacities may represent edema, pulmonary hemorrhage, or spread of infection, possibly with an endobronchial or less likely an aspiration component. No CT evidence of cavitation. -- More subtle centrilobular groundglass opacities in the right lung probably relate to additional sites of infection. Pneumonitis could also be considered -- Hepatomegaly with Gallbladder hydrops as can be seen with obstruction or fasting. No obstructing stone or mass detected in this examination. Sepsis related to acute PNA. BCx collected and are pending. UCx pending Started on Cefepime and Vancomycin 02/10 (Flagyl and Rocephin given once in ED on 02/09). ABG this morning 7. on bipap. Anion gap better at 16 but serum bicarb 13 with climbing lactic acid Move to ICU. Fluid bolus already ordered. Consult ingot car operator. Add IVF with bicarb, Solu-Cortef and Azithromycin (2) Acute hypoxic respiratory failure: Code(s): J96.01 - Acute respiratory failure with hypoxia Status: Acute Assessment and Plan: No ABG on admission but drawn this morning showing metabolic acidosis. Was 100% on room air initially with progressivelty worsening respiratory condition and now on bipap CXR showing extensive left lung consolidation today and reviewed personally; discussed with ingot car operator. Add bronchodilators. May need intubation. (3) Acute kidney failure: Code(s): N17.9 - Acute kidney failure, unspecified Status: Acute Assessment and Plan: Cr was normal (0.8) in April 2023 Cr elevated on admission and climbed to 3.[address] scan showing no suspicious renal mass, obstructing stone or hydronephrosis CT scan was done with contrast Potassium stable. Has a metabolic acidosis felt more likely related to lactic acidosis then LINDSEY UOP 300mL Monitor renal fxn, electrolytes and UOP (4) Pneumonia: Qualifiers: Laterality: left Lung location: upper lobe of lung Pneumonia type: due to unspecified organism Qualified Code(s): J18.9 - Pneumonia, unspecified organism Code(s): J18.9 - Pneumonia, unspecified organism Status: Acute Assessment and Plan: Patient with rapidly worsening radiographic and clinical condition. As above. (5) Acute lactic acidosis: Code(s): E87.21 - Acute metabolic acidosis Status: Acute Assessment and Plan: Secondary to sepsis from PNA. Lactic acid worsening. Bicarb started. Monitor for improvement. (6) Personal history of Hodgkin lymphoma: Code(s): Z85.71 - Personal history of Hodgkin lymphoma Status: Acute Assessment and Plan: In remission. Spleen normal size but with hepatomegaly for unclear etiology. No prominent adenopathy. (7) Hypothyroidism, unspecified: Onset Date: 04/2023
[2024-02-11] MEDS: LEVALBUTEROL NEB 1.25 MG/3 ML INHALATION ×2 (07:37→13:50)
[2024-02-11] MEDS: IPRATROPIUM BR 0.02% INH SOLN 0.5 MG/2.5 ML VIAL INHALATION ×2 (07:37→13:50)
[2024-02-11] MEDS: HYDROCORTISONE SODIUM SUCCINATE 100 MG/2 ML VIAL IV PUSH ×2 (07:56→13:22)
[2024-02-11] MEDS: SODIUM BICARBONATE 8.4% 150 MEQ in DEXTROSE 5% 1,000 ML 950 ML 100 MEQ IV CONT (07:58)
[2024-02-11] MEDS: NOREPINEPHRINE 8 MG/D5W 250 ML 8 MG/250 ML BAG 9.38 MG IV CONT (08:15)
[2024-02-11] MEDS: ROCURONIUM BROMIDE 50 MG/5 ML VIAL IV PUSH (08:20)
[2024-02-11] MEDS: ETOMIDATE 20 MG/10 ML AMPUL IV PUSH (08:20)
[2024-02-11 08:23] LABS: SPREG INTERNAL CONTROL Positive; Serum Qual hCG Negative
[2024-02-11] MEDS: SODIUM BICARBONATE 8.4% 50 MEQ/50 ML SYRINGE (08:25)
[2024-02-11] MEDS: SODIUM BICARBONATE 8.4% 50 MEQ/50 ML SYRINGE IV PUSH ×4 (08:25→17:34)
[2024-02-11] MEDS: MIDAZOLAM 100MG/NS 100ML(*CRX) 100 MG/100 ML BAG IV CONT (08:30)
[2024-02-11] MEDS: FENTANYL 2,500MCG/NS250ML(*CRX 2,500 MCG/250 ML BAG IV CONT (08:30)
[2024-02-11] MEDS: SODIUM CHLORIDE 0.9% IV 1,000 ML 999 ML (08:30)
[2024-02-11 08:31] LABS: Reflex Lactic Acid Yes or No Add Lactic
[2024-02-11] MEDS: MIDAZOLAM HCL (*CRX) 2 MG/2 ML VIAL 4 MG IV PUSH (08:35)
[2024-02-11 08:37] LABS: Amphetamine Screen Urine Negative (Negative); Barbiturate Screen Urine Negative (Negative); Benzodiazepines Screen Urine Negative (Negative); Cannabinoid Screen Urine Negative (Negative); Cocaine Screen Urine Negative (Negative); Methadone Screen Urine Negative (Negative); Opiate Screen Urine Negative (Negative); Phencyclidine Screen Urine Negative (Negative)
[2024-02-11 09:01] LABS: Alveolar/Arterial O2 Gradient 590.2 mmHg; Base Excess ABG -17.3 mEq/l (+/-2.0); Carboxyhemoglobin 0.2 % THb (0-2.0); Fractional Inspired Oxygen 100 %; Methemoglobin ABG 0.3 %THb (0-1.5); Oxygen Content ABG 14.4 %vol (16.0-22.0); PCO2 ABG 49.2 mmHg (35.0-45.0); PO2 ABG 73.6 mmHg (80.0-100.0); PO2 FiO2 Ratio Arterial Blood 0.74 %; Total Hemoglobin 11.9 g/dL (12.0-18.0)
[2024-02-11 09:05] LABS: Oxygen Saturation ABG 86.9 % (95.0-100.0); Oxyhemoglobin 85.5 % THb (90.0-100.0); Site Drawn ARTLINE; pH ABG 7.039 (7.350-7.450)
[2024-02-11 09:06] LABS: Arterial Blood Gas PEEP 10 cmH2O; Arterial Blood Gas Tidal Volume 380 ml; Arterial Blood Gas Vent Mode CMV; Arterial Blood Gas Ventilator rate 26 /MIN; Device VENTILATOR
[2024-02-11] MEDS: MIDAZOLAM HCL (*CRX) 2 MG/2 ML VIAL IV PUSH (09:30)
[2024-02-11] MEDS: VASOPRESSIN INJ 100 UNITS in DEXTROSE 5% 95 ML IV CONT (09:30)
--- NOTE | 2024-02-11 09:58 | WPDCNINT ---
Assessment and Plan Assessment and plan (1) Acute hypoxic respiratory failure: Code(s): J96.01 - Acute respiratory failure with hypoxia Status: Acute Assessment and Plan: Acute Respiratory failure secondary to severe pneumonia which may be progressing to ARDS with possible component of pulmonary edema and possible aspiration of brownish liquid Continue full mechanical ventilation support to prevent hypoxemia/hypercarbia and end organ damage. Patient is currently at 7 mL/kg tidal volume. Peep is at 12. FiO2 100%. Rate is 30 Post intubation chest x-ray and ABG reviewed Patient will be placed in prone position and repeat ABG will be done Patient is sedated with Versed and fentanyl and will be started on Nimbex infusion for neuromuscular allan Will hold further IV fluids except gentle infusion of sodium bicarbonate due to significant metabolic acidosis Continue vancomycin azithromycin but change cefepime to meropenem cover for aspiration Low tidal volume ventilation strategy to prevent volutrauma Bronchodilators PCR for RSV influenza and COVID were negative Check urine Legionella pneumococcal antigen and IgM mycoplasma Blood and sputum cultures Check HIV screen (2) Septic shock: Code(s): A41.9 - Sepsis, unspecified organism; R65.21 - Severe sepsis with septic shock Status: Acute Assessment and Plan: Patient has received significant IV fluids will hold further IV fluids in light of her respiratory failure, ARDS Levophed vasopressin drip Sodium bicarb for acidosis IV calcium gluconate Stress dose Hydrocortisone Will add 25% albumin Will check echocardiogram (3) Acute kidney failure: Code(s): N17.9 - Acute kidney failure, unspecified Status: Acute Assessment and Plan: Acute kidney injury Likely secondary to sepsis and shock CT abdomen pelvis did not show any stone or hydronephrosis Check CK level Consult nephrology Check urine electrolytes (4) Pneumonia: Qualifiers: Laterality: left Lung location: upper lobe of lung Pneumonia type: due to unspecified organism Qualified Code(s): J18.9 - Pneumonia, unspecified organism Code(s): J18.9 - Pneumonia, unspecified organism Status: Acute Assessment and Plan: See above (5) Metabolic acidosis: Code(s): E87.20 - Acidosis, unspecified Status: Acute Assessment and Plan: Sodium bicarb ordered to keep pH in acceptable range Repeat ABG ordered (6) Hypothyroidism, unspecified: Onset Date: 04/2023 Code(s): E03.9 - Hypothyroidism, unspecified Status: Acute Assessment and Plan: Continue levothyroxine TSH ordered and pending Plan DVT prophylaxis -Lovenox Stress ulcer prophylaxis -PPI Nutrition - npo Code Status - Full Code I have discussed this in detail with patient and then later with patient's parents I explained that the patient is critically ill with multiorgan failure which likely started with severe community-acquired pneumonia. Patient at this time as acute respiratory failure septic shock and acute renal failure. She has guarded prognosis and high risk of mortality Total Critical Care Time - 120 minutes except separately billed procedures Due to a high probability of clinically significant, life threatening deterioration, the patient required my highest level of preparedness to intervene emergently and I personally spent this critical care time directly and personally managing the patient. This critical care time included obtaining a history; examining the patient; pulse oximetry; ordering and review of studies; arranging urgent treatment with development of a management plan; evaluation of patient's response to treatment; frequent reassessment; and discussions with other providers. It was exclusive of separately billable procedures and treating other patients and teaching time. Please see Assessment and Plan section and the rest of the note for furthe
[2024-02-11] MEDS: CALCIUM GLUC 2,000 MG/NS 100ML 2,000 MG/100 ML BAG 100 MG IVPB (10:27)
--- NOTE | 2024-02-11 10:28 | WPDPROCEDUR ---
Procedures Intubation Intubation Date: 02/11/24 Intubation Time: 08:00 Consent: Consent obtained from patient and patient's parents A pre-procedural Time-Out was completed immediately before starting the procedure and confirmed: Patient Identification, Site, Procedure, Patient Position and the Availability of Requisite Equipment: Yes Sedative: etomidate Mg given: 20 Paralytic: rocuronium Mg given: 50 Laryngoscope: fiber optic video scope Assist device used: fiber optic device ET tube size: cuffed Tube secured depth (cm): 23 Tube secured location: lips Tube placement confirmation: visualized tube passing through cords, equal breath sounds bilaterally, no breath sounds over epigastrium and confirmation by capnometry Patient tolerated procedure: well Intubation complications: other Additional comments: Large amount of liquid brown fluid collection seen in and oropharynx which was coming out of stomach. Patient was hypoxic and was intubated immediately and post intubation oropharynx and stomach was suctioned out. Patient had poor saturation waveform throughout the procedure and was not reliable despite multiple attempts of changing the sats sensor
--- NOTE | 2024-02-11 10:30 | WPDPROCEDUR ---
Procedures Arterial Line Arterial Line Date: 02/11/24 Arterial Line Time: 08:30 Discussed with the patient/family/POA, the placement of an arterial catheter, including its clinical necessity/indication and associated potential risks, benefits and alternatives.: Yes Patient/family/POA and/or understands and acknowledges the need to proceed with the arterial catheter insertion as an important element of the patient's clinical management.: Yes Time Out Performed: Yes Patient Position: supine Safety Net Maker Prep: sterile gown, sterile gloves and mask Site: right Site Prep: chlorhexidine Technique used: ultrasound-guided Length: 12 cm Closure/Dressing: suture and transparent dressing Patient tolerated procedure: well Complications: other Additional comments: Patient required 3 attempts. On 1st 2 attempts I was able to cannulate the pre without any difficulty but was unable to advance guidewire to a satisfactory depth. On 3rd attempt and needle with built-in guidewire was used with short arterial catheter which went in without any complication. A short length catheter was placed then a guidewire was inserted through the catheter once arterial access was confirmed and catheter was changed over guidewire to a longer length arterial catheter.
--- NOTE | 2024-02-11 10:32 | WPDPROCEDUR ---
Procedures Central Line Placement Right IJ: Central Line Date: 02/11/24 Central Line Time: 08:50 Discussed w/ the patient/family/POA,the placement of a central venous catheter, including its clinical necessity/indication & associated potential risks, benifits and alternatives.: Yes The patient/family/POA understand(s) and acknowledge(s) the need to proceed with central venous catheter insertion as an important element of the patient's clinical management.: Yes Consent: I have discussed with the patient and her parents, the non-emergent placement of a central venous catheter, including its clinical necessity/indication and associated potential risks and complications. The patient and her parents understand(s) and acknowledge(s) the need to proceed with central venous catheter insertion as an important element of the patient's clinical management. Time Out Performed: Yes Patient Position: supine Patient placed on monitor/pulse ox: Yes Provider Prep: mask, sterile gown, sterile gloves, Max. sterile barrier precautions, cap and hand hygiene with conventional soap/water or alcohol based hand rub Central line prep: Povidone-Iodine 1% Sterile US Technique with sterile gel/sterile probe covers: Yes Central line lumen inserted: triple Length (cm): 16 Depth of Insertion (cm): 16 Post Procedure: sutured in place, good blood return, all ports aspirated, flushed, capped, transparent dressing, hemostatic product and aseptic technique maintained throughout procedure Post procedure x-ray: tip of catheter in good position and no pneumothorax seen Patient tolerated procedure: well Complications: none
[2024-02-11 10:35] LABS: Alveolar/Arterial O2 Gradient 580.9 mmHg; Base Excess ABG -15.4 mEq/l (+/-2.0); Fractional Inspired Oxygen 100 %; HCO3 ABG 12.9 mEq/l (22.0-26.0); Oxygen Content ABG 14.2 %vol (16.0-22.0); Oxygen Saturation ABG 94.5 % (95.0-100.0); Oxyhemoglobin 92.8 % THb (90.0-100.0); PCO2 ABG 39.8 mmHg (35.0-45.0); PO2 ABG 92.3 mmHg (80.0-100.0); PO2 FiO2 Ratio Arterial Blood 0.92 %; Total Hemoglobin 10.8 g/dL (12.0-18.0)
[2024-02-11 10:36] LABS: Device VENTILATOR; Site Drawn ARTLINE
[2024-02-11 10:37] LABS: Arterial Blood Gas PEEP 12 cmH2O; Arterial Blood Gas Tidal Volume 380 ml; Arterial Blood Gas Vent Mode CMV; Arterial Blood Gas Ventilator rate 30 /MIN
[2024-02-11] MEDS: MEROPENEM 500 MG in SODIUM CHLORIDE 0.9% IV 100 ML 200 ML IVPB (11:06)
[2024-02-11] MEDS: AZITHROMYCIN 500 MG/NS 250 ML 500 MG/250 ML BAG 250 MG IVPB (11:06)
[2024-02-11 11:09] LABS: Hematocrit 30.2 % (37.0-47.0); Hemoglobin 9.8 g/dL (12.0-15.0); Mean Corpuscular HGB Conc 32.5 g/dl (32-36); Mean Corpuscular Hemoglobin 31.1 pg (26-34); Mean Corpuscular Volume 95.9 fl (80-100); Mean Platelet Volume 10.9 fl (7.4-10.4); Platelet Count Result 272 k/mm3 (150-375); Red Blood Count 3.15 M/mm3 (4.2-5.4); Red Cell Distribution Width 14.4 % (11.5-14.5); White Blood Count 4.5 K/mm3 (4.5-10.0)
[2024-02-11 11:15] LABS: Creatine Kinase 135 U/L (30-135)
[2024-02-11] MEDS: ENOXAPARIN 30 MG/0.3 ML SYRINGE SUB-Q (11:19)
[2024-02-11 11:20] LABS: Lactic Acid 8.3 mmol/L (0.7-2.0)
[2024-02-11] MEDS: SODIUM BICARBONATE TAB 650 MG TABLET FEED TUBE (11:48)
[2024-02-11 11:57] LABS: Glucose Point of Care 101 mg/dl (65-105)
[2024-02-11] MEDS: LACTATED RINGERS 500 ML 999 ML IV CONT (12:05)
[2024-02-11 12:10] LABS: HIV 1/2 Ab P24 Ag Result Negative (Negative)
[2024-02-11 12:19] LABS: Anisocytosis 1+; Band Neutrophils Percent 10 % (0-6); Hypochromasia 1+; Lymphocytes Absolute Manual 1.08 K/mm3 (1.1-4.5); Metamyelocytes Percent 4 %; Monocytes Absolute Manual 0.18 K/mm3 (0.1-0.90); Monocytes Percent Manual 4 % (3-9); Neutrophils Absolute Manual 3.06 K/mm3 (1.7-7.2); Neutrophils Percent Manual 58 % (46-73); Platelet Estimate Adequate (Adequate); Poikilocytosis 1+; Schistocytes None Seen; Total Cells Counted 100
[2024-02-11] MEDS: ALBUMIN HUMAN 5% 25 GM/500 ML BTL IV CONT (12:24)
[2024-02-11 12:30] LABS: Alanine Aminotransferase 40 U/L (6-35); Albumin Level 1.9 g/dL (3.5-5.1); Alkaline Phosphatase 54 U/L (38-126); Anion Gap 20 mmol/L (4-12); Aspartate Amino Transferase 281 U/L (14-36); Bilirubin,Total 0.7 mg/dL (0.2-1.3); Blood Urea Nitrogen 23 mg/dL (7-17); Calcium 6.2 mg/dL (8.4-10.2); Carbon Dioxide 13 mmol/L (22-30); Chloride 108 mmol/L (98-107); Estimated CRCL calculation 25 ml/min; Estimated Glomerular Filt Rate 17; Glucose 158 mg/dL (65-110); Magnesium 1.6 mg/dL (1.6-2.3); Phosphorus 8.9 mg/dL (2.5-4.5); Potassium 3.8 mmol/L (3.4-5.0); Sodium 141 mmol/L (137-145)
[2024-02-11] MEDS: EPINEPHrine INJ 1 MG in DEXTROSE 5% IN WATER 250 ML 15.06 MG IV CONT (12:33)
[2024-02-11] MEDS: NOREPINEPHRINE 8 MG/D5W 250 ML 8 MG/250 ML BAG 88.13 MG IV CONT (13:16)
--- NOTE | 2024-02-11 13:19 | PM.EVENT ---
Event Note Event Note Event Note: Spoke to [facility] transfer center, Dr. Shepherd who is MICU fellow and Dr. Davis with ECMO team. I discussed case with them. Dr. Davis of does not think patient is a candidate for ECMO at this time and does not feel there is any benefit to transfer patient to [facility] hence will not accept the patient at this time. Waiting for call back from [facility]
[2024-02-11] MEDS: ACETAMINOPHEN ELIXIR 325 MG/10.15 ML UDC 650 MG PO (13:22)
[2024-02-11 13:29] LABS: Influenza A QL RT-PCR Negative (Negative); Influenza B QL RT-PCR Negative (Negative); RSV RNA, RT-PCR Negative (Negative); SARS-CoV-2 RNA PCR Negative (Negative)
[2024-02-11] MEDS: CENTRAL LINE FLUSH 10 ML IV PUSH (13:50)
[2024-02-11 13:54] LABS: Creatinine Urine 55.9 mg/dL
[2024-02-11 13:55] LABS: Sodium Urine Random 107 meq/L
--- NOTE | 2024-02-11 13:55 | PM.CNNEP ---
Assessment and Plan Assessment and plan (1) Acute kidney failure: Code(s): N17.9 - Acute kidney failure, unspecified Status: Acute Assessment and Plan: presumably secondary to sepsis and shock CT abdomen pelvis did not show any stone or hydronephrosis check urine studies and CPK remains at risk for DRAGGER OUT/dialysis follow trend of repeat labs and UOP (2) Septic shock: Code(s): A41.9 - Sepsis, unspecified organism; R65.21 - Severe sepsis with septic shock Status: Acute Assessment and Plan: presumed source = pneumonia s/p aggressive IVF resuscitation on vasopressor for BP support (levophed and vasopressin) IV albumin and stress dose steroids initiated follow culture data on antibiotics continue supportive therapy (3) Acute hypoxic respiratory failure: Code(s): J96.01 - Acute respiratory failure with hypoxia Status: Acute Assessment and Plan: due to pneumonia but with the concern of ARDS, pulmonary edema, and possible aspiration on ventilator support bronchodilator therapy antibiotic as outlined (4) Pneumonia: Qualifiers: Laterality: left Lung location: upper lobe of lung Pneumonia type: due to unspecified organism Qualified Code(s): J18.9 - Pneumonia, unspecified organism Code(s): J18.9 - Pneumonia, unspecified organism Status: Acute Assessment and Plan: as noted by admission imaging on antibiotics follow culture data (5) Metabolic acidosis: Code(s): E87.20 - Acidosis, unspecified Status: Acute Assessment and Plan: bicarb IVFs to compensate follow ABGs Long extensive discussion (greater than 20 minutes) with the patient's family at bedside given the patient's significant deterioration since admission including her acute kidney injury/ acute renal failure. I discussed with them my concerns that there is a possibility that she may require renal replacement therapy / dialysis if her kidney function continues to deteriorate or if she runs into issues with resistant metabolic acidosis, hyperkalemia, volume overload, uremia and they appeared to voice understanding. I will continue follow the patient with you while she remains hospitalized and make further recommendations as deemed necessary. Thank you for allowing me to participate in the care of this patient. History of Present Illness Reason for Consult Consult date: 02/11/24 Reason for consult: acute renal failure Chief Complaint Chief complaint: Dehydration,Sepsis,Pneumonia,N/V/D History of Present Illness Narrative: All of the information I have obtained is from review of the electronic medical record as well as discussion with the physician/ nurses involved in the patient's care as well as her family at bedside as the patient is unable to provide any history due to her current clinical status (intubated and on mechanical ventilation ). The patient is a 24-year-old female with a past medical history as outlined below who presented to [facility] Emergency Room with complaints of cough in association with shortness of breath. Apparently, for last 2-3 days, the patient has been having a cough which has been productive with greenish phlegm/sputum. At the symptoms continued to worsen in association with chest discomfort, she came to the emergency room for further assessment. Workup and evaluation emergency room demonstrated the patient chemically stable but in mild distress. Routine blood work demonstrated significant findings including acute kidney injury per and otherwise normal CBC. Her chest x-ray demonstrated a left lung infiltrate and a subsequent CTA of her chest was negative for PE but did confirm her left lung pneumonia. After appropriate cultures were obtained, she was started on broad-spectrum IV antibiotic therapy and subsequently admitted to the step-down unit. Unfortunately, by the time of her arrival to the [facility]
[2024-02-11] MEDS: CALCIUM CHLOR 1,000MG/100ML NS 1,000 MG/100 ML BAG 100 MG IVPB (15:08)
[2024-02-11 16:18] LABS: Alveolar/Arterial O2 Gradient 525.3 mmHg; Base Excess ABG -16.4 mEq/l (+/-2.0); Fractional Inspired Oxygen 100 %; HCO3 ABG 12.1 mEq/l (22.0-26.0); Oxygen Content ABG 14.2 %vol (16.0-22.0); Oxygen Saturation ABG 98.2 % (95.0-100.0); Oxyhemoglobin 96.7 % THb (90.0-100.0); PCO2 ABG 38.7 mmHg (35.0-45.0); PO2 FiO2 Ratio Arterial Blood 1.49 %; Total Hemoglobin 10.2 g/dL (12.0-18.0)
[2024-02-11 16:20] LABS: Device VENTILATOR; Site Drawn ARTLINE; pH ABG 7.112 (7.350-7.450)
[2024-02-11 16:21] LABS: Arterial Blood Gas PEEP 12 cmH2O; Arterial Blood Gas Tidal Volume 380 ml; Arterial Blood Gas Vent Mode CMV; Arterial Blood Gas Ventilator rate 30 /MIN
--- NOTE | 2024-02-11 18:33 | PM.TDS ---
Transfer Discharge Sum: Prov Provider Date of admission: 02/11/24 00:58 Primary care physician: Wilman Bernard MD Admitting clinician: Clemente Britt MD Consults: 02/11/24 Consult to Physician Routine Comment: Consulting Provider: Tracey Enamorado credit director/MD group to consult: Nephrology Reason for consultation: LINDSEY Has provider been notified: Yes 02/11/24 07:12 Consult to Physician Routine Comment: Consulting Provider: Kole Knutson credit director/MD group to consult: [place] Reason for consultation: resp failure Has provider been notified: Yes DS: Admitting Diagnosis Discharge Date 02/11/24 Admitting Diagnosis Shortness of breath DS: Discharge Diagnosis Discharge Diagnosis (1) Sepsis: Qualifiers: Acute renal failure type: unspecified Sepsis acute organ dysfunction status: with acute organ dysfunction Sepsis type: sepsis due to unspecified organism Severe sepsis acute organ dysfunction type: acute renal failure Severe sepsis shock status: with septic shock Qualified Code(s): A41.9 - Sepsis, unspecified organism; R65.21 - Severe sepsis with septic shock; N17.9 - Acute kidney failure, unspecified Code(s): A41.9 - Sepsis, unspecified organism Status: Acute (2) Acute hypoxic respiratory failure: Code(s): J96.01 - Acute respiratory failure with hypoxia Status: Acute (3) Acute kidney failure: Code(s): N17.9 - Acute kidney failure, unspecified Status: Acute (4) Pneumonia: Qualifiers: Laterality: left Lung location: upper lobe of lung Pneumonia type: due to unspecified organism Qualified Code(s): J18.9 - Pneumonia, unspecified organism Code(s): J18.9 - Pneumonia, unspecified organism Status: Acute (5) Acute lactic acidosis: Code(s): E87.21 - Acute metabolic acidosis Status: Acute (6) Personal history of Hodgkin lymphoma: Code(s): Z85.71 - Personal history of Hodgkin lymphoma Status: Acute (7) Hypothyroidism, unspecified: Onset Date: 04/2023 Code(s): E03.9 - Hypothyroidism, unspecified Status: Acute (8) Generalized anxiety disorder: Code(s): F41.1 - Generalized anxiety disorder Status: Acute Transfer Discharge Sum: Med Medications Active and Home Medications: Home Medications drospirenone 3 mg-ethinyl estradiol 0.02 mg tablet (Loryna (28)) 1 tablet PO DAILY 01/14/22 [History Confirmed 02/11/24] lorazepam 1 mg tablet (Ativan) 1 mg PO TID PRN anxiety #21 tabs 08/27/23 [Rx Confirmed 02/11/24] levothyroxine 100 mcg tablet 100 mcg PO DAILY #90 tabs 12/01/23 [Rx Confirmed 02/11/24] ondansetron HCl 4 mg tablet 4 mg PO Q6H PRN nausea and vomiting #20 tabs 02/09/24 [Rx Confirmed 02/11/24] sertraline 50 mg tablet 50 mg PO DAILY 02/09/24 [History Confirmed 02/11/24] hydroxyzine HCl 25 mg tablet 25 mg PO TID PRN Anxiety 02/11/24 [History Confirmed 02/11/24] metoprolol succinate 50 mg tablet,extended release 24 hr 50 mg PO DAILY 02/11/24 [History Confirmed 02/11/24] Transfer Discharge Sum: Hosp Hospital Course Hospital course: Juanis Jordan is a 24yo female with hypothyroidism and hx of lymphoma here for SOB. Please see H&Pfor details. Patient presented with shortness of breath and found to have severe sepsis with lactic acidosis, tachycardia, metabolic gap aciedosis, LINDSEY, and elevated CRP. Also with transiently low BP to 74/56. She received 3L NS in ED CTA Ch/A/P: -- No CT evidence of acute pulmonary bolus. -- Segmental/subsegmental consolidation in the left upper lobe likely representing initial chest radiograph findings and likely consistent with pneumonia. -- Larger area of surrounding acinar opacities, likely representing the increasing opacification seen in the most recent radiograph, these opacities may represent edema, pulmonary hemorrhage, or spread of infection, possibly with an endobronchial or less likely an aspiration component. No CT
[2024-02-19 18:29] LABS: Pneumococcal Antigen Urine NOT DETECTED
[2024-02-19 22:14] LABS: Legionella pneumophila Ag Ur NOT DETECTED
[2024-02-20 17:13] LABS: Mycoplasma IgM Antibody Titer 274 U/mL
== END 2024-02-11 18:00 | disposition short-term general hospital (02) | DRG 871 ==
LOC: ANHED 19:44 → ANHICU 02-11 03:33
PROVIDERS: Internal Medicine; Preventive Medicine Aerospace Medicine; Admitting Provider Internal Medicine; Emergency Provider Emergency Medicine; PCP Family Medicine Adolescent Medicine; Visit Provider Internal Medicine
DX: A41.9 Sepsis, unspecified organism (principal); J18.9 Pneumonia, unspecified organism; J96.01 Acute respiratory failure with hypoxia; R65.21 Severe sepsis with septic shock; N17.9 Acute kidney failure, unspecified; E87.21 Acute metabolic acidosis; K21.9 Gastro-esophageal reflux disease without esophagitis; E03.9 Hypothyroidism, unspecified; F39 Unspecified mood [affective] disorder; F41.1 Generalized anxiety disorder; Z20.822 Contact with and (suspected) exposure to COVID-19; Z85.71 Personal history of Hodgkin lymphoma
CPT/HCPCS: 31500; 36415; 36600; 71045; 71046; 71275; 74177; 80053; 80307; 81001; 81025; 82375; 82550; 82570; 82805; 82948; 83050; 83605; 83735; 84100; 84300; 84703; 85025; 85610; 85730; 86140; 86703; 86738; 87040; 87070; 87077; 87086; 87088; 87181; 87205; 87449; 87637; 87641; 87899; 94002; 94640; 96361; 96365; 96367; 96368; 96375; 99285; A9270; G0432; J0171; J0456; J0613; J0692; J0696; J1200; J1650; J1720; J1836; J2060; J2185; J2250; J2371; J2405; J3010; J3370; J3475; J3480; J7030; J7040; J7060; J7070; J7120; P9045; Q9967